=== PATIENT | female | born 1960 | race American Indian/Alaskan Native ===

== ENCOUNTER 2016-12-19 10:07 | Outpatient (CLI) | payer OTHER ==
--- NOTE | 2016-12-20 08:38 | Mammography Report ---
BILATERAL DIGITAL SCREENING MAMMOGRAM WITH CAD: Comparison studies are from November and December of 2015. FINDINGS: There is heterogeneous density of the fibroglandular tissue, and the overall pattern is stable. The triangular area of parenchymal asymmetry in the upper outer left breast is stable and demonstrates no suspicious features. There is no architectural distortion and no suspicious calcifications are seen. IMPRESSION: Stable benign findings. BI-RADS CATEGORY: 2 = Benign ACR BI-RADS MAMMOGRAPHIC CODES: 0 = Needs additional imaging evaluation; 1 = Negative; 2 = Benign; 3 = Probably benign; 4 = Suspicious; 5 = Malignant; 6 = Known biopsy-proven malignancy COMMENT: 1. Dense breast tissue, i.e., adenosis, fibrocystic changes, etc., may obscure an underlying neoplasm. 2. Approximately 10% of cancers are not detected with mammography. 3. A negative mammography report should not delay biopsy if a clinically suspicious mass is present. RECOMMENDATION: Annual screening. COMMENT: Patient follow-up letters are generated in [employer].
== END 2016-12-19 10:08 | disposition home or self-care (01) ==
LOC: MAMMO 10:07
PROVIDERS: ATTEND Internal Medicine
DX: Z12.31 Encounter for screening mammogram for malignant neoplasm of breast (principal)
CPT/HCPCS: 77067; G0202

== ENCOUNTER 2018-01-20 07:53 | Outpatient (CLI) | payer OTHER ==
--- NOTE | 2018-01-20 12:03 | Mammography Report ---
BILATERAL DIGITAL SCREENING MAMMOGRAM with CAD :01/20/18 07:53:00 CLINICAL: Routine screening. COMPARISON:12/19/16 FINDINGS: The breasts are extremely dense, which lowers the sensitivity of mammography. No mass, architectural distortion or suspicious calcifications. IMPRESSION: No mammographic evidence of malignancy. BI-RADS CATEGORY: 2 -- Benign RECOMMENDATION: Routine mammographic screening in one year. ACR BI-RADS MAMMOGRAPHIC CODES: 0 = Needs additional imaging evaluation; 1 = Negative; 2 = Benign; 3 = Probably benign; 4 = Suspicious; 5 = Malignant; 6 = Known biopsy-proven malignancy COMMENT: 1. Dense breast tissue, i.e., adenosis, fibrocystic changes, etc., may obscure an underlying neoplasm. 2. Approximately 10% of cancers are not detected with mammography. 3. A negative mammography report should not delay biopsy if a clinically suspicious mass is present. Patient follow-up letters are generated by our [employer] application.
== END 2018-01-20 07:54 | disposition home or self-care (01) ==
LOC: MAMMO 07:53
PROVIDERS: ATTEND Internal Medicine
DX: Z12.31 Encounter for screening mammogram for malignant neoplasm of breast (principal)
CPT/HCPCS: 77067

== ENCOUNTER 2019-03-19 07:47 | Outpatient (CLI) | payer OTHER ==
--- NOTE | 2019-03-19 08:36 | Mammography Report ---
Screening mammogram: Routine views compared to exams dating back to 2016. Patient has a heterogeneously dense and symmetrically distributed fibroglandular pattern. In the superior lateral right breast there is a dense focal appearing asymmetry not identified on prior exams. The remainder of the examination bilaterally is unchanged and unremarkable. CAD used. Impression: Right breast asymmetry. Recommendation: Additional spot compression imaging and breast ultrasound as needed. BI-RADS CATEGORY: 0 = Needs additional imaging evaluation ACR BI-RADS MAMMOGRAPHIC CODES: 0 = Needs additional imaging evaluation; 1 = Negative; 2 = Benign; 3 = Probably benign; 4 = Suspicious; 5 = Malignant; 6 = Known biopsy-proven malignancy COMMENT: 1. Dense breast tissue, i.e., adenosis, fibrocystic changes, etc., may obscure an underlying neoplasm. 2. Approximately 10% of cancers are not detected with mammography. 3. A negative mammography report should not delay biopsy if a clinically suspicious mass is present.
== END 2019-03-19 07:48 | disposition home or self-care (01) ==
LOC: MAMMO 07:47
PROVIDERS: ATTEND Internal Medicine
DX: Z12.31 Encounter for screening mammogram for malignant neoplasm of breast (principal)
CPT/HCPCS: 77067

== ENCOUNTER 2019-05-11 12:26 | Outpatient (CLI) | payer OTHER ==
--- NOTE | 2019-05-12 16:30 | Ultrasound Report ---
RIGHT BREAST ULTRASOUND HISTORY: Abnormal screening mammogram. COMPARISON: 03/19/2019 mammogram FINDINGS: Ultrasound of the left breast including all 4 quadrants and the retroareolar area was perfo rmed . However, the ultrasound examination was performed without a diagnostic mammogram and was done without physician supervision. The technologist measured several areas which are of questionable sign ificance and do not appear to correlate with the mammographic asymmetry described at the time of the screening mammogram. IMPRESSION Incomplete workup. We will call the patient back for a right diagnostic mammogram and repeat right br east ultrasound. BIRADS 0 --Needs Additional Imaging Signer Name: Maximino Fernando MD Signed: 05/12/2019 4:25 PM Workstation Name: [id number]
== END 2019-05-11 12:27 | disposition home or self-care (01) ==
LOC: US 12:26
PROVIDERS: ATTEND Internal Medicine
DX: R92.2 Inconclusive mammogram (principal)

== ENCOUNTER 2019-05-13 07:38 | Outpatient (CLI) | payer OTHER ==
--- NOTE | 2019-05-13 09:14 | Mammography Report ---
RIGHT DIGITAL DIAGNOSTIC MAMMOGRAM INDICATION: Recalled for asymmetry TECHNIQUE: Digital right mammographic imaging was performed. COMPARISON: 03/19/2019 FINDINGS: Breast Density: The breast is heterogeneously dense, which may obscure small masses. ML and MLO and CC spot compression views were performed. Satisfactory effacement of asymmetries on th e spot images and a negative lateral view. Ultrasound of the entire right breast was performed and was negative. It is reported separately. IMPRESSION: No mammographic evidence of malignancy. BI-RADS Category 1: Negative. Recommend routine screening mammography in one year. A "normal" or negative report should not discourage follow up or biopsy of a clinically significant f inding. A written summary of these findings will be mailed to the patient. The patient will be entered into a mammography reporting system which will generate a reminder letter for the patient's next appointmen t at the appropriate interval. FURTHER INFORMATION: According to the [employer], yearly mammograms are recommend ed starting at age 40 and continuing as long as a woman is in good health. Breast MRI is recommended for women with an approximately 20-25% or greater lifetime risk of breast cancer, including women wi th a strong family history of breast or ovarian cancer and women who have been treated for Hodgkin's disease. Signer Name: Maximino Fernando MD Signed: 05/13/2019 9:10 AM Workstation Name: [id number]
== END 2019-05-13 07:39 | disposition home or self-care (01) ==
LOC: MAMMO 07:38
PROVIDERS: ATTEND Internal Medicine
DX: R92.8 Other abnormal and inconclusive findings on diagnostic imaging of breast (principal)

== ENCOUNTER 2021-08-01 09:43 | Outpatient (CLI) | payer OTHER ==
--- NOTE | 2021-08-01 15:20 | Mammography Report ---
DIGITAL SCREENING MAMMOGRAM WITH CAD, 08/01/2021 CLINICAL INFORMATION / INDICATION: Routine screening mammography. Z21.31 TECHNIQUE: Digital bilateral 2D mammography was obtained in the craniocaudal and mediolateral obliqu e projections. This examination was interpreted with the benefit of Computer-Aided Detection analysis . COMPARISON: March 19, 2019, January 20, 2018 and December 19, 2016 FINDINGS: Breast Density: The breasts are heterogeneously dense, which may obscure small masses. No dominant mass, suspicious calcifications, or architectural distortion in either breast. IMPRESSION: No mammographic evidence of malignancy. Follow up recommendation: Routine yearly BI-RADS Category 1: Negative. A "normal" or negative report should not discourage follow up or biopsy of a clinically significant f inding. A written summary of these findings will be mailed to the patient. The patient will be entered into a mammography reporting system which will generate a reminder letter for the patient's next appointmen t at the appropriate interval. The [employer] recommends yearly mammograms starting at age 40 and continuing as l blas as a woman is in good health. Breast MRI is recommended for women with an approximate 20-25% or greater lifetime risk of breast cancer, including women with a strong family history of breast or ova sarina cancer or who have been treated for Hodgkin's disease. Signer Name: Eyad Ruffin DO Signed: 08/01/2021 3:16 PM Workstation Name: [id number]
== END 2021-08-01 09:44 | disposition home or self-care (01) ==
LOC: MAMMO 09:43
PROVIDERS: ATTEND Internal Medicine
DX: Z12.31 Encounter for screening mammogram for malignant neoplasm of breast (principal)
CPT/HCPCS: 77067

== ENCOUNTER 2022-04-17 10:42 | Outpatient (CLI) | payer OTHER ==
--- NOTE | 2022-04-17 14:18 | Ultrasound Report ---
LEFT DIGITAL DIAGNOSTIC MAMMOGRAM WITH CAD WITH TOMOSYNTHESIS -- 04/17/2022 LEFT LIMITED BREAST ULTRASOUND INDICATION: The patient reports a palpable lump in the left breast. TECHNIQUE: Digital left mammographic imaging was performed. Spot compression views were obtained. Li mited ultrasound was performed. This examination was interpreted with the benefit of Computer-Aided D etection (CAD) analysis. COMPARISON: Screening mammogram, 08/01/2021 and 03/19/2019 FINDINGS: Breast Density: The breasts are heterogeneously dense, which may obscure small masses. MAMMOGRAPHIC FINDINGS: Spot compression views confirm a spiculated 1.4 cm density at the 2:00 positio n posterior depth. This corresponds to the patient's area of palpable concern. ULTRASOUND FINDINGS: Targeted ultrasound evaluation was performed of the area of interest. Sonograp hic evaluation of the left breast at the 2:00 position 5 cm from the nipple demonstrates an irregular hypoechoic solid mass with posterior shadowing measuring 1.4 x 1.5 cm. There is minimal internal vas cularity. This corresponds to the patient's area of palpable concern. Sonographic evaluation of the axilla demonstrates two axillary lymph nodes which are normal in size w ith a minimally thickened cortex. As a reference, the larger measures 1.4 cm in length by 0.8 cm in s hort axis with a maximum cortical thickness of 4 mm. IMPRESSION: 1. Spiculated left breast mass at the 2:00 position as described which is highly suggestive for neop lasm. Ultrasound-guided biopsy and surgical consultation are recommended. 2. Mildly prominent but not pathologically enlarged left axillary lymph nodes as described above. Follow up recommendation: Biopsy BI-RADS Category 5: HIGHLY SUGGESTIVE OF MALIGNANCY. A "normal" or negative report should not discourage follow up or biopsy of a clinically significant f inding. A written summary of these findings will be mailed to the patient. The patient will be entered into a mammography reporting system which will generate a reminder letter for the patient's next appointmen t at the appropriate interval. According to the [employer], yearly mammograms are recommended starting at age 40 and continuing as long as a woman is in good health. Breast MRI is recommended for women with an hunter roximately 20-25% or greater lifetime risk of breast cancer, including women with a strong family his tory of breast or ovarian cancer and women who have been treated for Hodgkin's disease. Signer Name: Meghana Pereira MD Signed: 04/17/2022 2:14 PM Workstation Name: [id number]
== END 2022-04-17 10:43 | disposition home or self-care (01) ==
LOC: SPVWC 10:42
PROVIDERS: ATTEND General Practice
DX: N63.21 Unspecified lump in the left breast, upper outer quadrant (principal); R92.8 Other abnormal and inconclusive findings on diagnostic imaging of breast
CPT/HCPCS: 76642; G0279

== ENCOUNTER 2022-05-11 07:54 | Outpatient (CLI) | payer OTHER ==
--- NOTE | 2022-05-11 09:46 | Mammography Report ---
DIGITAL DIAGNOSTIC MAMMOGRAM WITH CAD CONVENTIONAL, 05/11/2022 CLINICAL INFORMATION / INDICATION: Postbiopsy mammogram POST US BX TECHNIQUE: Digital left mammographic imaging was performed. This examination was interpreted with the benefit of Computer-aided Detection analysis. COMPARISON: Diagnostic ultrasound and mammogram dated 04/17/2022 FINDINGS: Breast Density: The breasts are heterogeneously dense, which may obscure small masses. There is a biopsy clip within the left outer slightly upper breast corresponding to the area of mammo graphic concern. IMPRESSION: Appropriate positioning of biopsy clip within the left breast. Follow up recommendation: Surgical consultation Post biopsy imaging. A "normal" or negative report should not discourage follow up or biopsy of a clinically significant f inding. A written summary of these findings will be mailed to the patient. The patient will be entered into a mammography reporting system which will generate a reminder letter for the patient's next appointmen t at the appropriate interval. According to the [employer], yearly mammograms are recommended starting at age 40 and continuing as long as a woman is in good health. Breast MRI is recommended for women with an hunter roximately 20-25% or greater lifetime risk of breast cancer, including women with a strong family his tory of breast or ovarian cancer and women who have been treated for Hodgkin's disease. Signer Name: Eyad Ruffin DO Signed: 05/11/2022 9:42 AM Workstation Name: [id number]
--- NOTE | 2022-05-11 12:36 | Ultrasound Report ---
ULTRASOUND GUIDED LEFT BREAST BIOPSY, 05/11/2022 CLINICAL INFORMATION / INDICATION: N63.0. COMPARISON: 04/17/2022 PROCEDURE: Risks, benefits, and indications to the procedure were discussed with the patient in detail, includin g bleeding, infection, hematoma formation, and inadequate tissue sampling. The patient agreed to proc eed with both verbal and written consent. A timeout procedure was performed with two patient identifi ers. The breast was prepped and draped in the usual sterile fashion. Lidocaine 1% with and without epineph rine were used for local anesthesia. Under direct ultrasound guidance, multiple core samples were obt ained of the left breast mass. A biopsy marker was then placed. Biopsy device was removed and hemost asis achieved with manual pressure. A sterile dressing was applied to the skin. The patient tolerated the procedure without difficulty. No complications were encountered. Postbiopsy instructions were discussed with the patient and given in writing. Specimens were sent to pathology. IMPRESSION: 1. Technically successful ultrasound guided left breast biopsy. Biopsy results are pending and will be reported in an addendum. Signer Name: Eyad Ruffin DO Signed: 05/11/2022 12:31 PM Workstation Name: [id number]
== END 2022-05-11 07:55 | disposition home or self-care (01) ==
LOC: US 07:54
PROVIDERS: ATTEND General Practice
DX: N63.21 Unspecified lump in the left breast, upper outer quadrant (principal); D05.82 Other specified type of carcinoma in situ of left breast; R92.8 Other abnormal and inconclusive findings on diagnostic imaging of breast; N64.89 Other specified disorders of breast; Z17.1 Estrogen receptor negative status [ER-]; Z98.890 Other specified postprocedural states
CPT/HCPCS: 19083; 77065; 88305; A4648; 88342

== ENCOUNTER 2022-06-19 08:40 | Outpatient (CLI) | payer OTHER ==
--- NOTE | 2022-06-20 12:20 | Magnetic Resonance Report ---
BILATERAL BREAST MRI WITH AND WITHOUT CONTRAST, 06/19/2022 CLINICAL INFORMATION/INDICATION: 61-year-old female with recent diagnosis of left breast invasive car cinoma.. TECHNICAL: Axial T1 and T2-weighted fat sat images were obtained precontrast. After intravenous admin istration of 15 mL Clariscan, serial axial T1 weighted images with fat saturation were obtained. 3-D MIP projections, kinetic analysis and subtraction imaging was utilized to evaluate. A dedicated 8-schuyler nnel breast coil was used for image acquisition. COMPARISON: Recent left mammogram and ultrasound 04/17/2021 FINDINGS: There is minimal background parenchymal enhancement within both breasts. Heterogeneously dense fibro glandular tissue is present bilaterally. Right breast: There are there is linear ductal enhancement in the subareolar right breast beginning a t the level of the nipple and extending posteriorly for approximately 2.8 cm. This is certainly indra rning for the potential of DCIS. No other abnormal finding is seen within the right breast. Left breast: Biopsy clip from recent biopsy of breast carcinoma in the 2-3:00 posterior position of t he left breast is noted. However there is no associated enhancement of the biopsy-proven neoplasm. Ne oplasm is actually difficult to discern with MRI other than the presence of a biopsy clip in the henry cent tissue. In the area of the biopsy-proven carcinoma, there is a clear fat plane between the area of the carcinoma and the pectoralis muscle and there is normal-appearing fat in the subcutaneous tiss ue anterior to the area of the breast carcinoma. No abnormal enhancement is seen within the remainder of the left breast. Axillae: No pathologically enlarged axillary lymph nodes are identified. Please note the patient did have suspicious lymph nodes in the left axilla by ultrasound examination. Additional findings: Limited imaging of the thorax and upper abdomen demonstrates no focal abnormalit y. IMPRESSION: 1. This patient has a biopsy-proven carcinoma in the left breast at 2-3:00 posterior depth. However, there is no abnormal enhancement associated with the carcinoma. Therefore measurements are not provid ed based on this MRI exam. There is no suggestion of pectoralis muscle involvement or skin involvemen t. 2. Abnormal segment of linear ductal enhancement in the right subareolar breast extending for approxi mately 2.8 cm. Recommend further evaluation with diagnostic right mammogram including magnification v iews for the purpose of attempting to find correlate for biopsy. If there is no mammographic correlat e identified, MRI guided biopsy is recommended. Follow up recommendation: Special View: Magnification, including diagnostic right mammogram BI-RADS Category 4: SUSPICIOUS FOR MALIGNANCY. Signer Name: Fay Ansari MD Signed: 06/20/2022 12:16 PM Workstation Name: [id number]
== END 2022-06-19 08:41 | disposition home or self-care (01) ==
LOC: SPVIMAG 08:40
DX: C50.912 Malignant neoplasm of unspecified site of left female breast (principal); R92.8 Other abnormal and inconclusive findings on diagnostic imaging of breast
CPT/HCPCS: A9575; C8908; 77049